=== PATIENT | male | born 1960 | race Caucasian/White ===

== ENCOUNTER 2020-12-09 12:40 | Inpatient (IN) | payer OTHER ==
[~2020-12-09 12:40] MED LIST: Iopamidol-370 76% 500 ML 1 ML ONE
[2020-12-09 13:38] LABS: #Basophils 0.1 thou/uL (0.0-0.2); #Eosinphils 0.1 thou/uL (0.0-0.7); #Lymphocytes 1.5 thou/uL (1.20-3.40); #Monocytes 0.6 thou/uL (0.11-0.59); #Neutrophils 5.6 thou/uL (1.40-6.50); %Basophils 1.4 % (0.0-1.0); %Eosinophils 1.8 % (0.0-10.0); %Lymphocytes 18.9 % (21.0-51.0); %Monocytes 7.6 % (0.0-10.0); %Neutrophils 70.3 % (42.0-75.0); Hemoglobin 15.2 g/dL (14.0-18.0); Mean Corpuscular HGB CONC 32.1 g/dL (32.0-36.0); Mean Corpuscular Hemoglobin 32.2 pg (27.0-31.0); Mean Platelet Volume 11.1 fL (7.4-10.4); Platelet Count 127 thou/uL (130-400); RBC Distribution Width 13.2 % (11.5-14.5); Red Blood Cell (RBC) Count 4.72 mill/uL (4.70-6.10); White Blood Cell (WBC) Count 7.9 thou/uL (4.8-10.8)
[2020-12-09 13:44] LABS: INR-International Normal Ratio 1.6; PTT 36.5 sec (22.9-36.1); Prothrombin Time 19.7 sec (12.0-14.7)
[2020-12-09 13:46] LABS: D-Dimer Test 1.07 *mcg/mL (0.27-0.43)
[2020-12-09 14:01] LABS: ALT (SGPT) 29 U/L (8-55); AST (SGOT) 23 U/L (5-34); Albumin 3.9 g/dL (3.4-4.8); Alkaline Phosphatase 87 U/L (40-110); Anion Gap 18 mmol/L (10-20); BUN (Urea Nitrogen) 18 mg/dL (8.4-25.7); Bilirubin, Total 2.9 mg/dL (0.2-1.2); Calc. Creatinine Clearance 0 mL/min (70-130); Calcium 9.1 mg/dL (7.8-10.44); Carbon Dioxide 22 mmol/L (23-31); Chloride 99 mmol/L (98-107); Globulin 2.7 g/dL (2.4-3.5); Glucose 120 mg/dL (80-115); Magnesium 1.9 mg/dL (1.6-2.6); Potassium 4.2 mmol/L (3.5-5.1); Protein, Total 6.6 g/dL (5.8-8.1); Sodium 135 mmol/L (136-145)
[2020-12-09] MEDS ORDERED: Furosemide 40 MG/4 ML VIAL ONE (15:53)
[2020-12-09 16:25] LABS: Lactic Acid 1.8 mmol/L (0.5-2.2)
[2020-12-09] MEDS ORDERED: Senokot S 8.6-50 MG TAB PO PRN (16:52)
[2020-12-09 17:37] LABS: Troponin I 0.026 ng/mL (< 0.028)
[2020-12-09 21:38] LABS: Troponin I 0.013 ng/mL (< 0.028)
[2020-12-09] MEDS: Famotidine 20 MG TAB PO SCH (22:13)
[2020-12-09 22:55] VITALS: BMI 36.6
[2020-12-10 02:09] LABS: SARS-CoV-2 PCR by NAA Not Detected (NotDetected)
[2020-12-10 04:50] LABS: INR-International Normal Ratio 1.5; Prothrombin Time 18.6 sec (12.0-14.7)
[2020-12-10 04:53] LABS: #Basophils 0.1 thou/uL (0.0-0.2); #Eosinphils 0.2 thou/uL (0.0-0.7); #Lymphocytes 1.1 thou/uL (1.20-3.40); #Monocytes 0.6 thou/uL (0.11-0.59); #Neutrophils 4.6 thou/uL (1.40-6.50); %Basophils 1.1 % (0.0-1.0); %Eosinophils 2.8 % (0.0-10.0); %Lymphocytes 16.9 % (21.0-51.0); %Monocytes 9.1 % (0.0-10.0); %Neutrophils 70.1 % (42.0-75.0); Hemoglobin 14.5 g/dL (14.0-18.0); Mean Corpuscular HGB CONC 32.7 g/dL (32.0-36.0); Mean Corpuscular Hemoglobin 32.3 pg (27.0-31.0); Mean Corpuscular Volume 98.7 fL (78.0-98.0); Mean Platelet Volume 10.8 fL (7.4-10.4); Platelet Count 129 thou/uL (130-400); RBC Distribution Width 13.3 % (11.5-14.5); Red Blood Cell (RBC) Count 4.48 mill/uL (4.70-6.10); White Blood Cell (WBC) Count 6.6 thou/uL (4.8-10.8)
[2020-12-10] MEDS: Furosemide 40 MG/4 ML VIAL SLOW IVP SCH ×2 (05:04→14:19)
[2020-12-10 05:10] LABS: ALT (SGPT) 27 U/L (8-55); AST (SGOT) 21 U/L (5-34); Albumin 3.9 g/dL (3.4-4.8); Alkaline Phosphatase 84 U/L (40-110); Anion Gap 15 mmol/L (10-20); BUN (Urea Nitrogen) 19 mg/dL (8.4-25.7); Bilirubin, Total 2.7 mg/dL (0.2-1.2); Calc. Creatinine Clearance 109 mL/min (70-130); Calcium 9.1 mg/dL (7.8-10.44); Carbon Dioxide 27 mmol/L (23-31); Chloride 99 mmol/L (98-107); Globulin 2.6 g/dL (2.4-3.5); Glucose 110 mg/dL (80-115); Potassium 3.8 mmol/L (3.5-5.1); Protein, Total 6.5 g/dL (5.8-8.1); Sodium 137 mmol/L (136-145)
[2020-12-10] MEDS: Famotidine 20 MG TAB PO SCH ×2 (08:23→21:32)
[2020-12-10] MEDS ORDERED: Spironolactone 25 MG TAB PO SCH (12:45)
[2020-12-10] MEDS ORDERED: Warfarin Sodium 5 MG TAB PO SCH (17:00)
[2020-12-10] MEDS: Enoxaparin Sodium 120 MG/0.8 ML SYRINGE SC SCH (21:32)
[2020-12-10] MEDS: Acetaminophen 325 MG TAB PO PRN (21:33)
[2020-12-11 05:02] LABS: #Basophils 0.1 thou/uL (0.0-0.2); #Eosinphils 0.1 thou/uL (0.0-0.7); #Lymphocytes 1.2 thou/uL (1.20-3.40); #Monocytes 0.5 thou/uL (0.11-0.59); #Neutrophils 3.3 thou/uL (1.40-6.50); %Basophils 1.9 % (0.0-1.0); %Eosinophils 2.6 % (0.0-10.0); %Lymphocytes 23.3 % (21.0-51.0); %Monocytes 9.4 % (0.0-10.0); %Neutrophils 62.8 % (42.0-75.0); Hemoglobin 13.8 g/dL (14.0-18.0); Mean Corpuscular HGB CONC 32.4 g/dL (32.0-36.0); Mean Corpuscular Hemoglobin 31.8 pg (27.0-31.0); Mean Platelet Volume 10.3 fL (7.4-10.4); Platelet Count 112 thou/uL (130-400); RBC Distribution Width 13.1 % (11.5-14.5); Red Blood Cell (RBC) Count 4.33 mill/uL (4.70-6.10); White Blood Cell (WBC) Count 5.3 thou/uL (4.8-10.8)
[2020-12-11] MEDS: Furosemide 40 MG/4 ML VIAL SLOW IVP SCH (05:12)
[2020-12-11 05:27] LABS: ALT (SGPT) 23 U/L (8-55); AST (SGOT) 20 U/L (5-34); Albumin 3.5 g/dL (3.4-4.8); Alkaline Phosphatase 74 U/L (40-110); Anion Gap 15 mmol/L (10-20); BUN (Urea Nitrogen) 20 mg/dL (8.4-25.7); Bilirubin, Total 2.6 mg/dL (0.2-1.2); Calc. Creatinine Clearance 109 mL/min (70-130); Calcium 8.8 mg/dL (7.8-10.44); Carbon Dioxide 28 mmol/L (23-31); Chloride 97 mmol/L (98-107); Globulin 2.5 g/dL (2.4-3.5); Glucose 105 mg/dL (80-115); Potassium 3.7 mmol/L (3.5-5.1); Sodium 136 mmol/L (136-145)
[2020-12-11] MEDS ORDERED: Furosemide 40 MG/4 ML VIAL SLOW IVP SCH ×3 (08:20→14:00)
[2020-12-11] MEDS ORDERED: Furosemide 100 MG/10 ML VIAL SLOW IVP SCH (09:00)
[2020-12-11] MEDS: Enoxaparin Sodium 120 MG/0.8 ML SYRINGE SC SCH ×2 (09:16→21:50)
[2020-12-11] MEDS: Spironolactone 25 MG TAB PO SCH (09:16)
[2020-12-11] MEDS: Famotidine 20 MG TAB PO SCH ×2 (09:16→21:50)
[2020-12-11] MEDS: Furosemide 100 MG/10 ML VIAL SLOW IVP SCH (14:49)
[2020-12-11] MEDS ORDERED: Lidocaine 5% Patch TD SCH (15:00)
[2020-12-11] MEDS: Acetaminophen 325 MG TAB PO PRN (21:50)
[2020-12-12] MEDS: Transdermal Patch Removal TOP SCH (03:29)
[2020-12-12 05:05] LABS: #Basophils 0.1 thou/uL (0.0-0.2); #Eosinphils 0.1 thou/uL (0.0-0.7); #Lymphocytes 1.2 thou/uL (1.20-3.40); #Monocytes 0.5 thou/uL (0.11-0.59); %Basophils 1.1 % (0.0-1.0); %Eosinophils 2.8 % (0.0-10.0); %Lymphocytes 23.9 % (21.0-51.0); %Monocytes 9.9 % (0.0-10.0); %Neutrophils 62.4 % (42.0-75.0); Hemoglobin 14.3 g/dL (14.0-18.0); Mean Corpuscular HGB CONC 32.9 g/dL (32.0-36.0); Mean Corpuscular Hemoglobin 32.3 pg (27.0-31.0); Mean Corpuscular Volume 98.2 fL (78.0-98.0); Mean Platelet Volume 10.4 fL (7.4-10.4); Platelet Count 126 thou/uL (130-400); RBC Distribution Width 13.1 % (11.5-14.5); Red Blood Cell (RBC) Count 4.42 mill/uL (4.70-6.10); White Blood Cell (WBC) Count 4.8 thou/uL (4.8-10.8)
[2020-12-12 05:28] LABS: ALT (SGPT) 21 U/L (8-55); AST (SGOT) 18 U/L (5-34); Albumin 3.5 g/dL (3.4-4.8); Alkaline Phosphatase 74 U/L (40-110); Anion Gap 15 mmol/L (10-20); BUN (Urea Nitrogen) 20 mg/dL (8.4-25.7); Bilirubin, Total 1.9 mg/dL (0.2-1.2); Calc. Creatinine Clearance 110 mL/min (70-130); Calcium 8.8 mg/dL (7.8-10.44); Carbon Dioxide 30 mmol/L (23-31); Chloride 97 mmol/L (98-107); Globulin 2.6 g/dL (2.4-3.5); Glucose 100 mg/dL (80-115); Potassium 3.2 mmol/L (3.5-5.1); Protein, Total 6.1 g/dL (5.8-8.1); Sodium 139 mmol/L (136-145)
[2020-12-12] MEDS: Furosemide 100 MG/10 ML VIAL SLOW IVP SCH ×2 (05:53→15:28)
[2020-12-12] MEDS: Enoxaparin Sodium 120 MG/0.8 ML SYRINGE SC SCH ×2 (09:21→20:49)
[2020-12-12] MEDS: Famotidine 20 MG TAB PO SCH ×2 (09:22→20:49)
[2020-12-12] MEDS: Lidocaine 5% Patch TD SCH (09:23)
[2020-12-12] MEDS ORDERED: Spironolactone 25 MG TAB PO SCH (09:45)
[2020-12-12] MEDS: Spironolactone 25 MG TAB PO SCH (10:45)
[2020-12-12] MEDS ORDERED: Potassium Chloride 20 MEQ TAB PO SCH (16:15)
[2020-12-13] MEDS: Transdermal Patch Removal TOP SCH ×2 (01:26→21:14)
[2020-12-13] MEDS ORDERED: Furosemide 20 MG/2 ML VIAL SLOW IVP SCH (06:30)
[2020-12-13] MEDS: Furosemide 100 MG/10 ML VIAL SLOW IVP SCH ×2 (07:37→14:32)
[2020-12-13] MEDS ORDERED: Metolazone 5 MG TAB PO SCH (08:45)
[2020-12-13] MEDS: Lidocaine 5% Patch TD SCH (09:00)
[2020-12-13] MEDS: Acetaminophen 325 MG TAB PO PRN (09:00)
[2020-12-13] MEDS: Enoxaparin Sodium 120 MG/0.8 ML SYRINGE SC SCH (09:00)
[2020-12-13] MEDS ORDERED: Furosemide 100 MG/10 ML VIAL SLOW IVP SCH (09:00)
[2020-12-13] MEDS: Spironolactone 25 MG TAB PO SCH (09:02)
[2020-12-13] MEDS: Famotidine 20 MG TAB PO SCH ×2 (09:03→21:13)
[2020-12-14 04:14] LABS: #Basophils 0.1 thou/uL (0.0-0.2); #Eosinphils 0.1 thou/uL (0.0-0.7); #Monocytes 0.5 thou/uL (0.11-0.59); #Neutrophils 3.5 thou/uL (1.40-6.50); %Basophils 1.6 % (0.0-1.0); %Eosinophils 2.8 % (0.0-10.0); %Lymphocytes 18.5 % (21.0-51.0); %Monocytes 10.5 % (0.0-10.0); %Neutrophils 66.6 % (42.0-75.0); Hemoglobin 15.5 g/dL (14.0-18.0); Mean Corpuscular HGB CONC 31.9 g/dL (32.0-36.0); Mean Corpuscular Hemoglobin 31.1 pg (27.0-31.0); Mean Corpuscular Volume 97.5 fL (78.0-98.0); Mean Platelet Volume 10.1 fL (7.4-10.4); Platelet Count 138 thou/uL (130-400); RBC Distribution Width 13.1 % (11.5-14.5); Red Blood Cell (RBC) Count 4.99 mill/uL (4.70-6.10); White Blood Cell (WBC) Count 5.2 thou/uL (4.8-10.8)
[2020-12-14 04:35] LABS: Anion Gap 18 mmol/L (10-20); BUN (Urea Nitrogen) 22 mg/dL (8.4-25.7); Calc. Creatinine Clearance 92 mL/min (70-130); Calcium 9.7 mg/dL (7.8-10.44); Carbon Dioxide 30 mmol/L (23-31); Chloride 96 mmol/L (98-107); Glucose 99 mg/dL (80-115); Potassium 3.7 mmol/L (3.5-5.1); Sodium 140 mmol/L (136-145)
[2020-12-14] MEDS: Famotidine 20 MG TAB PO SCH ×2 (04:42→20:20)
[2020-12-14] MEDS: Spironolactone 25 MG TAB PO SCH (04:42)
[2020-12-14] MEDS ORDERED: Gentamicin 80 MG/2 ML VIAL ONE (06:27)
[2020-12-14] MEDS ORDERED: CEFAZOLIN 1 GM VIAL ONE (06:27)
[2020-12-14] MEDS ORDERED: Propofol 500 MG/50 ML VIAL ONE (06:40)
[2020-12-14] MEDS ORDERED: Fentanyl 100 MCG/2 ML VIAL ONE (06:41)
[2020-12-14] MEDS ORDERED: Midazolam HCl 2 mg/2 ml Vial ONE (06:42)
[2020-12-14] MEDS ORDERED: Ketamine 50 MG/ML (10ML VIAL) ONE (06:48)
[2020-12-14] MEDS ORDERED: Ondansetron PF 4 MG/2 ML Vial ONE (07:07)
[2020-12-14] MEDS ORDERED: PHENYLEPHRINE-NS 100 MCG/ML 10 ML SYRINGE ONE (07:07)
[2020-12-14] MEDS ORDERED: PROPOFOL 200 MG/20 ML VIAL ONE (07:07)
[2020-12-14] MEDS ORDERED: Phenylephrine 10 MG/ML VIAL ONE (07:27)
[2020-12-14] MEDS ORDERED: Promethazine HCl 25 MG/ML VIAL SLOW IVP PRN (09:04)
[2020-12-14] MEDS ORDERED: Ondansetron HCl/PF 4 MG/2 ML Vial IVP PRN (09:04)
[2020-12-14] MEDS ORDERED: HYDROmorphone 2 MG/ML VIAL SLOW IVP PRN (09:04)
[2020-12-14] MEDS ORDERED: Promethazine HCl 25 MG/ML VIAL IM PRN (09:04)
[2020-12-14] MEDS ORDERED: Acetaminophen/Codeine 30-300mg Tablet PO PRN ×2 (10:30)
[2020-12-14] MEDS ORDERED: Iopamidol 370 76% 50 ML VIAL FS ONE (10:44)
[2020-12-14] MEDS: Furosemide 100 MG/10 ML VIAL SLOW IVP SCH ×2 (11:01→15:42)
[2020-12-14] MEDS: Lidocaine 5% Patch TD SCH (11:18)
[2020-12-14] MEDS ORDERED: Cephalexin 250 MG CAP PO SCH (13:00)
[2020-12-14 15:43] LABS: INR-International Normal Ratio 1.1; Prothrombin Time 14.6 sec (12.0-14.7)
[2020-12-14] MEDS: CEFAZOLIN 2 GM in Premix Bag 1 BAG IVPB SCH ×2 (15:59→23:12)
[2020-12-14] MEDS ORDERED: Warfarin Sodium 5 MG TAB PO SCH (17:00)
[2020-12-14] MEDS: Transdermal Patch Removal TOP SCH (21:28)
[2020-12-15 04:19] LABS: INR-International Normal Ratio 1.1; Prothrombin Time 14.2 sec (12.0-14.7)
[2020-12-15 04:35] LABS: Anion Gap 17 mmol/L (10-20); BUN (Urea Nitrogen) 26 mg/dL (8.4-25.7); Calc. Creatinine Clearance 76 mL/min (70-130); Calcium 9.2 mg/dL (7.8-10.44); Carbon Dioxide 29 mmol/L (23-31); Chloride 95 mmol/L (98-107); Glucose 113 mg/dL (80-115); Potassium 3.9 mmol/L (3.5-5.1); Sodium 137 mmol/L (136-145)
[2020-12-15 04:45] LABS: #Basophils 0.1 thou/uL (0.0-0.2); #Eosinphils 0.1 thou/uL (0.0-0.7); #Lymphocytes 0.6 thou/uL (1.20-3.40); #Monocytes 0.5 thou/uL (0.11-0.59); %Basophils 0.9 % (0.0-1.0); %Eosinophils 2.1 % (0.0-10.0); %Lymphocytes 11.8 % (21.0-51.0); %Monocytes 9.7 % (0.0-10.0); %Neutrophils 75.5 % (42.0-75.0); Hemoglobin 15.1 g/dL (14.0-18.0); Mean Corpuscular HGB CONC 32.4 g/dL (32.0-36.0); Mean Corpuscular Hemoglobin 31.6 pg (27.0-31.0); Mean Corpuscular Volume 97.6 fL (78.0-98.0); Mean Platelet Volume 10.3 fL (7.4-10.4); Platelet Count 112 thou/uL (130-400); Platelet Morphology Comment Appears Decreased; Red Blood Cell (RBC) Count 4.77 mill/uL (4.70-6.10); White Blood Cell (WBC) Count 5.3 thou/uL (4.8-10.8)
[2020-12-15] MEDS: Famotidine 20 MG TAB PO SCH ×2 (09:27→20:50)
[2020-12-15] MEDS: Cephalexin 250 MG CAP PO SCH ×4 (09:28→20:50)
[2020-12-15] MEDS: Spironolactone 25 MG TAB PO SCH (09:28)
[2020-12-15] MEDS: Lidocaine 5% Patch TD SCH (09:29)
[2020-12-15] MEDS: Acetaminophen 325 MG TAB PO PRN (17:45)
[2020-12-15] MEDS: Transdermal Patch Removal TOP SCH (20:53)
[2020-12-16 04:38] LABS: Hemoglobin 14.9 g/dL (14.0-18.0); Mean Corpuscular HGB CONC 32.8 g/dL (32.0-36.0); Mean Corpuscular Hemoglobin 32.2 pg (27.0-31.0); Mean Platelet Volume 10.2 fL (7.4-10.4); Platelet Count 86 thou/uL (130-400); RBC Distribution Width 12.9 % (11.5-14.5); Red Blood Cell (RBC) Count 4.65 mill/uL (4.70-6.10); White Blood Cell (WBC) Count 4.3 thou/uL (4.8-10.8)
[2020-12-16 04:50] LABS: Anion Gap 17 mmol/L (10-20); BUN (Urea Nitrogen) 19 mg/dL (8.4-25.7); Calc. Creatinine Clearance 115 mL/min (70-130); Calcium 8.8 mg/dL (7.8-10.44); Carbon Dioxide 25 mmol/L (23-31); Chloride 95 mmol/L (98-107); Glucose 109 mg/dL (80-115); Potassium 3.9 mmol/L (3.5-5.1); Sodium 133 mmol/L (136-145)
[2020-12-16 05:33] LABS: Band 7 % (5-11); Lymphocytes 5 % (21-51); MDiff Complete? YES; Monocytes 17 % (0-10); Neutrophil 68 % (42-75); Platelet Morphology Comment Appears Decreased; Reactive Lymphocytes 3 % (0-10)
[2020-12-16] MEDS ORDERED: Apixaban 5 MG TAB PO SCH (09:00)
[2020-12-16] MEDS: Cephalexin 250 MG CAP PO SCH ×3 (09:07→16:30)
[2020-12-16] MEDS: Lidocaine 5% Patch TD SCH (09:07)
[2020-12-16] MEDS: Spironolactone 25 MG TAB PO SCH (09:07)
[2020-12-16] MEDS: Famotidine 20 MG TAB PO SCH (09:08)
[2020-12-16] MEDS ORDERED: Sodium Chloride 0.65% Nasal 44 ML BOT EA NARE PRN (11:35)
[2020-12-16] MEDS ORDERED: Calcium Carbonate 500 MG ChewTAB PO PRN (11:35)
[2020-12-16] MEDS ORDERED: GUAIFENESIN SF SOLN 200 MG/10 ML UDCUP PO PRN (11:35)
[2020-12-16] MEDS ORDERED: HYDROcodone/Acetaminophen 5/325 mg Tablet PO PRN (11:35)
[2020-12-16] MEDS ORDERED: Ondansetron ODT 4 MG TAB PO PRN (11:35)
[2020-12-16] MEDS ORDERED: Loperamide HCl 2 MG CAP PO PRN (11:35)
[2020-12-16] MEDS ORDERED: Loratadine 10 MG TAB PO PRN (11:35)
[2020-12-16] MEDS ORDERED: Cepastat Lozenges 1 LOZ PO PRN (11:35)
[2020-12-16] MEDS ORDERED: Zolpidem Tartrate 5 MG TAB PO PRN (11:35)
[2020-12-16] MEDS ORDERED: hydrALAZINE 20 MG/ML VIAL SLOW IVP PRN (11:35)
[2020-12-16] MEDS ORDERED: Ondansetron PF 4 MG/2 ML Vial IVP PRN (11:35)
[2020-12-16 12:53] VITALS: BP 102/71; TEMP 98.4
== END 2020-12-16 16:45 | disposition home or self-care (01) | DRG 226 ==
LOC: ERS 12:40 → OBSVTOIN 16:47 → 2NO 16:47
PROVIDERS: ADMIT Internal Medicine; ATTEND Internal Medicine
PROC: 0JH609Z Insertion of Cardiac Resynchronization Defibrillator Pulse Generator into Chest Subcutaneous Tissue and Fascia, Open Approach (ICD-10-PCS; principal; 2020-12-14)
PROC: 02HK3KZ Insertion of Defibrillator Lead into Right Ventricle, Percutaneous Approach (ICD-10-PCS; 2020-12-14)
PROC: 02HL3KZ Insertion of Defibrillator Lead into Left Ventricle, Percutaneous Approach (ICD-10-PCS; 2020-12-14)
PROC: 02H63KZ Insertion of Defibrillator Lead into Right Atrium, Percutaneous Approach (ICD-10-PCS; 2020-12-14)
DX: I13.0 Hypertensive heart and chronic kidney disease with heart failure and stage 1 through stage 4 chronic kidney disease, or unspecified chronic kidney disease (principal); I50.23 Acute on chronic systolic (congestive) heart failure; I45.2 Bifascicular block; I48.20 Chronic atrial fibrillation, unspecified; I42.8 Other cardiomyopathies; E80.6 Other disorders of bilirubin metabolism; E87.6 Hypokalemia; Z20.822 Contact with and (suspected) exposure to COVID-19; N18.31 Chronic kidney disease, stage 3a; F10.10 Alcohol abuse, uncomplicated; Z79.01 Long term (current) use of anticoagulants
CPT/HCPCS: 33225; 33249; 36005; 36415; 71045; 71275; 75820; 76942; 80048; 80053; 82248; 83605; 83735; 83880; 84484; 85025; 85379; 85610; 85730; 87040; 87635; 93005; 93306; 93798; 96372; 96374; 96376; C1777; C1882; C1898; C1900; G0378; J0690; J1580; J1650; J1940; J2250; J2370; J2405; J2704; J3010; Q9967; U0003; U0005

== ENCOUNTER 2021-01-15 09:08 | Inpatient (IN) | payer OTHER ==
[2021-01-15 09:41] LABS: #Basophils 0.1 thou/uL (0.0-0.2); #Eosinphils 0.2 thou/uL (0.0-0.7); #Lymphocytes 1.2 thou/uL (1.20-3.40); #Monocytes 0.6 thou/uL (0.11-0.59); #Neutrophils 5.3 thou/uL (1.40-6.50); %Eosinophils 2.9 % (0.0-10.0); %Lymphocytes 15.9 % (21.0-51.0); %Monocytes 7.9 % (0.0-10.0); %Neutrophils 72.3 % (42.0-75.0); Hemoglobin 14.8 g/dL (14.0-18.0); Mean Corpuscular HGB CONC 31.3 g/dL (32.0-36.0); Mean Corpuscular Hemoglobin 29.5 pg (27.0-31.0); Mean Corpuscular Volume 94.4 fL (78.0-98.0); Mean Platelet Volume 11.6 fL (7.4-10.4); Platelet Count 108 thou/uL (130-400); RBC Distribution Width 13.2 % (11.5-14.5); Red Blood Cell (RBC) Count 5.03 mill/uL (4.70-6.10); White Blood Cell (WBC) Count 7.3 thou/uL (4.8-10.8)
[2021-01-15 10:02] LABS: ALT (SGPT) 19 U/L (8-55); AST (SGOT) 24 U/L (5-34); Albumin 4.4 g/dL (3.4-4.8); Alkaline Phosphatase 112 U/L (40-110); Anion Gap 18 mmol/L (10-20); BUN (Urea Nitrogen) 14 mg/dL (8.4-25.7); Bilirubin, Total 2.1 mg/dL (0.2-1.2); Calc. Creatinine Clearance 0 mL/min (70-130); Calcium 8.9 mg/dL (7.8-10.44); Carbon Dioxide 26 mmol/L (23-31); Chloride 92 mmol/L (98-107); Globulin 3.2 g/dL (2.4-3.5); Glucose 156 mg/dL (80-115); Potassium 3.7 mmol/L (3.5-5.1); Protein, Total 7.6 g/dL (5.8-8.1); Sodium 132 mmol/L (136-145)
[2021-01-15] MEDS ORDERED: Metoprolol Tartrate 5 MG/5 ML VIAL ONE (12:12)
[2021-01-15] MEDS ORDERED: Metoclopramide HCl 10 MG/2 ML VIAL ONE (12:12)
[2021-01-15] MEDS ORDERED: Furosemide 40 MG/4 ML VIAL ONE (12:12)
[2021-01-15] MEDS ORDERED: Magnesium 2 GM/50 ML BAG (IN WATER) ONE (13:37)
[2021-01-15] MEDS ORDERED: Potassium Chloride 20 MEQ TAB ONE (13:37)
[2021-01-15] MEDS ORDERED: Amiodarone 150 MG, Admixture Fee 1 EACH in Dextrose 5% in Water 100 ML IVPB SCH (14:30)
[2021-01-15] MEDS ORDERED: Electrolyte Replacement Protocol 1 EACH FS SCH (15:15)
[2021-01-15 15:22] LABS: Troponin I 0.018 ng/mL (< 0.028)
[2021-01-15] MEDS ORDERED: Electrolyte Replacement Protocol FS PRN (15:30)
[2021-01-15 16:44] VITALS: BMI 33.0
[2021-01-15] MEDS: Amiodarone 450 MG in Dextrose 5% in Water 250 ML IVPB SCH (16:57)
[2021-01-15 18:46] LABS: Troponin I 0.016 ng/mL (< 0.028)
[2021-01-15] MEDS: Apixaban 5 MG TAB PO SCH (20:55)
[2021-01-15] MEDS: Famotidine 20 MG TAB PO SCH (20:55)
[2021-01-15] MEDS ORDERED: HumaLOG 300 UNITS/3 ML VIAL SC PRN (21:34)
[2021-01-15] MEDS: Acetaminophen 325 MG TAB PO PRN (22:01)
[2021-01-16] MEDS: Amiodarone 450 MG in Dextrose 5% in Water 250 ML IVPB SCH ×2 (00:51→15:45)
[2021-01-16 04:31] LABS: #Basophils 0.1 thou/uL (0.0-0.2); #Eosinphils 0.1 thou/uL (0.0-0.7); #Lymphocytes 1.4 thou/uL (1.20-3.40); #Monocytes 1.1 thou/uL (0.11-0.59); #Neutrophils 6.2 thou/uL (1.40-6.50); %Basophils 0.8 % (0.0-1.0); %Eosinophils 1.7 % (0.0-10.0); %Lymphocytes 15.4 % (21.0-51.0); %Monocytes 12.6 % (0.0-10.0); %Neutrophils 69.5 % (42.0-75.0); Hemoglobin 14.3 g/dL (14.0-18.0); Mean Corpuscular HGB CONC 32.1 g/dL (32.0-36.0); Mean Corpuscular Hemoglobin 30.4 pg (27.0-31.0); Mean Corpuscular Volume 94.5 fL (78.0-98.0); Mean Platelet Volume 11.5 fL (7.4-10.4); Platelet Count 115 thou/uL (130-400); RBC Distribution Width 13.4 % (11.5-14.5); Red Blood Cell (RBC) Count 4.72 mill/uL (4.70-6.10); White Blood Cell (WBC) Count 8.9 thou/uL (4.8-10.8)
[2021-01-16 04:39] LABS: Anion Gap 21 mmol/L (10-20); BUN (Urea Nitrogen) 18 mg/dL (8.4-25.7); Calc. Creatinine Clearance 105 mL/min (70-130); Carbon Dioxide 22 mmol/L (23-31); Chloride 95 mmol/L (98-107); Glucose 123 mg/dL (80-115); Magnesium 2.4 mg/dL (1.6-2.6); Potassium 3.8 mmol/L (3.5-5.1); Sodium 134 mmol/L (136-145)
[2021-01-16 07:29] LABS: Phosphorus 3.6 mg/dL (2.3-4.7)
[2021-01-16] MEDS: Spironolactone 25 MG TAB PO SCH (08:17)
[2021-01-16] MEDS: Famotidine 20 MG TAB PO SCH ×2 (08:18→21:40)
[2021-01-16] MEDS: Furosemide 40 MG/4 ML VIAL SLOW IVP SCH ×2 (08:18→09:34)
[2021-01-16] MEDS: Apixaban 5 MG TAB PO SCH ×2 (08:18→21:40)
[2021-01-16] MEDS: Acetaminophen 325 MG TAB PO PRN (18:29)
[2021-01-16] MEDS: Amiodarone 200 MG TAB PO SCH (21:40)
[2021-01-17] MEDS: Acetaminophen 325 MG TAB PO PRN ×2 (08:35→21:07)
[2021-01-17] MEDS: Furosemide 40 MG/4 ML VIAL SLOW IVP SCH (08:35)
[2021-01-17] MEDS: Spironolactone 25 MG TAB PO SCH (08:36)
[2021-01-17] MEDS: Famotidine 20 MG TAB PO SCH ×2 (08:36→21:06)
[2021-01-17] MEDS: Amiodarone 200 MG TAB PO SCH ×2 (08:37→21:06)
[2021-01-17] MEDS: Apixaban 5 MG TAB PO SCH ×2 (08:37→21:06)
[2021-01-17] MEDS: Potassium Chloride 20 MEQ TAB PO SCH (11:08)
[2021-01-18 05:30] LABS: Anion Gap 14 mmol/L (10-20); BUN (Urea Nitrogen) 25 mg/dL (8.4-25.7); Calc. Creatinine Clearance 108 mL/min (70-130); Calcium 9.1 mg/dL (7.8-10.44); Carbon Dioxide 27 mmol/L (23-31); Chloride 94 mmol/L (98-107); Glucose 112 mg/dL (80-115); Potassium 3.7 mmol/L (3.5-5.1); Sodium 131 mmol/L (136-145)
[2021-01-18] MEDS ORDERED: Torsemide 20 MG TAB PO SCH (09:00)
[2021-01-18 09:04] VITALS: BP 110/76; TEMP 97.3
[2021-01-18] MEDS: Famotidine 20 MG TAB PO SCH (09:10)
[2021-01-18] MEDS: Amiodarone 200 MG TAB PO SCH (09:10)
[2021-01-18] MEDS: Spironolactone 25 MG TAB PO SCH (09:11)
[2021-01-18] MEDS: Apixaban 5 MG TAB PO SCH (09:11)
[2021-01-18] MEDS: Potassium Chloride 20 MEQ TAB PO SCH (09:54)
== END 2021-01-18 10:18 | disposition home or self-care (01) | DRG 308 ==
LOC: ERS 09:08 → ERHOLD 13:59 → 2NO 16:30
PROVIDERS: ADMIT Internal Medicine; ATTEND Internal Medicine
PROC: 4B02XTZ Measurement of Cardiac Defibrillator, External Approach (ICD-10-PCS; principal; 2021-01-15)
DX: I47.2 Ventricular tachycardia (principal); I50.23 Acute on chronic systolic (congestive) heart failure; I13.0 Hypertensive heart and chronic kidney disease with heart failure and stage 1 through stage 4 chronic kidney disease, or unspecified chronic kidney disease; I42.8 Other cardiomyopathies; I48.20 Chronic atrial fibrillation, unspecified; N18.30 Chronic kidney disease, stage 3 unspecified; F17.220 Nicotine dependence, chewing tobacco, uncomplicated; I08.1 Rheumatic disorders of both mitral and tricuspid valves; E87.6 Hypokalemia; Z95.810 Presence of automatic (implantable) cardiac defibrillator; Z79.01 Long term (current) use of anticoagulants; Z86.16 Personal history of COVID-19; Z79.899 Other long term (current) drug therapy
CPT/HCPCS: 36415; 71045; 80048; 80053; 83735; 83880; 84100; 84484; 85025; 93005; 93010; 96365; 96366; 96367; 96375; J0282; J1940; J2765; J3475; J7070

== ENCOUNTER 2021-04-06 09:53 | Day surgery (SDC) | payer OTHER ==
[2021-04-05 11:49] VITALS: BMI 31.6
[2021-04-06 11:04] LABS: Hemoglobin 14.6 g/dL (14.0-18.0); Mean Corpuscular HGB CONC 34.1 g/dL (32.0-36.0); Mean Corpuscular Hemoglobin 33.7 pg (27.0-31.0); Mean Platelet Volume 9.2 fL (7.4-10.4); Platelet Count 119 thou/uL (130-400); RBC Distribution Width 14.9 % (11.5-14.5); Red Blood Cell (RBC) Count 4.32 mill/uL (4.70-6.10)
[2021-04-06 11:11] LABS: INR-International Normal Ratio 1.6; Prothrombin Time 18.7 sec (12.0-14.7)
[2021-04-06 11:20] LABS: Anion Gap 16 mmol/L (10-20); BUN (Urea Nitrogen) 16 mg/dL (8.4-25.7); Calc. Creatinine Clearance 106 mL/min (70-130); Calcium 9.1 mg/dL (7.8-10.44); Carbon Dioxide 21 mmol/L (23-31); Chloride 102 mmol/L (98-107); Glucose 148 mg/dL (80-115); Sodium 135 mmol/L (136-145)
[2021-04-06] MEDS ORDERED: Fentanyl 100 MCG/2 ML VIAL ONE (12:42)
[2021-04-06] MEDS ORDERED: PROPOFOL 40 ML ONE (12:42)
== END 2021-04-06 15:13 | disposition home or self-care (01) ==
LOC: CCL 09:53
PROVIDERS: ATTEND Internal Medicine Cardiovascular Disease
PROC: 5A2204Z Restoration of Cardiac Rhythm, Single (ICD-10-PCS; principal; 2021-04-06)
DX: I48.20 Chronic atrial fibrillation, unspecified (principal); I42.8 Other cardiomyopathies; I50.9 Heart failure, unspecified; I08.1 Rheumatic disorders of both mitral and tricuspid valves; Z79.899 Other long term (current) drug therapy; Z95.810 Presence of automatic (implantable) cardiac defibrillator
CPT/HCPCS: 36415; 80048; 85027; 85610; 85730; 92960; 93005; 93010; J2704; J3010